=== PATIENT | male | born 1945 | race American Indian/Alaskan Native ===

== ENCOUNTER 2017-05-18 13:54 | Emergency (ER) | payer MEDICARE, MEDICAID ==
[2017-05-18 14:02] VITALS: BP 149/51
--- NOTE | 2017-05-18 14:36 | Emergency Department Report ---
Upper Extremity - HPI Chief Complaint: Extremity Injury, Upper Stated Complaint: RIGHT HAND PAIN Time Seen by Provider: 05/18/17 14:35 Upper Extremity: Right Wrist Occurred When: >5 Days Mechanism: Other (repetitive use) Symptoms: Yes Pain with Movement, Yes Numbness, No Deformity, No Limited Range of Movement, No Weakness, No Swelling, No Bruising/Ecchymosis, No Laceration or Abrasion Other History: 72-year-old male past medical history none presents with complaint of several months of intermittent right wrist discomfort. 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 Has been repetitively using his hands for the last week. Patient complains of intermittent right wrist pain with some associated numbness and tingling which goes to first second and third digits. Pain is worse with flexion of her right wrist. Some relief with extension. Denies any direct trauma no recent falls no direct blows to the right hand or wrist. ED Review of Systems ROS: Stated complaint: RIGHT HAND PAIN Other details as noted in HPI Constitutional: denies: chills, fever Eyes: denies: eye pain, eye discharge, vision change ENT: denies: ear pain, throat pain Respiratory: denies: cough, shortness of breath, wheezing Cardiovascular: denies: chest pain, palpitations Endocrine: no symptoms reported Gastrointestinal: denies: abdominal pain, nausea, diarrhea Genitourinary: denies: urgency, dysuria Musculoskeletal: as per HPI, arthralgia. denies: back pain, joint swelling Skin: denies: rash, lesions Neurological: denies: headache, weakness, paresthesias Psychiatric: denies: anxiety, depression Hematological/Lymphatic: denies: easy bleeding, easy bruising ED Past Medical Hx - Past Medical History Previous Medical History?: No - Medications Home Medications: Home Medications Medication Instructions Recorded Confirmed Last Taken Type Acetaminophen [Acetaminophen TAB] 500 mg PO Q6HR PRN #30 tablet 05/18/17 Unknown Rx Upper Extremity Exam - Exam General: Vital signs noted. No distress. Alert and acting appropriately. Head and Torso: No HEENT Abnormality, No Neck Tenderness, No Chest/Lungs Abnormality, No Abdominal Tenderness, No Back Tenderness Shoulder Exam: Yes Normal Range of Motion in Shoulder, No Shoulder Tenderness, No Clavicle Tenderness, No Shoulder Deformity, No AC Joint Tenderness Arm Exam: No Arm/Humerus Tenderness, No Arm Deformity Elbow: No Elbow Tenderness, No Normal Range of Motion in Elbow, No Elbow Deformity Forearm: No Forearm Tenderness, No Forearm Deformity, No Pain with Pronation, No Pain with Supination Wrist: Yes Normal ROM in Wrist (right wrist flexion and extension intact. Phalen and Tinel sign positive), No Wrist Tenderness, No Wrist Deformity, No Snuffbox Tenderness, No Pain with Axial Thumb Compression Hand: Yes Normal ROM in Digit(s) (flexion and extension digits right hand at PIP and DIPs MCPs fully intact), No Hand Tenderness, No Hand Deformity, No Digit Tenderness, No Digit(s) Deformity, No Tendon Dysfunction CMS Exam: Yes Normal Distal Pulses (distal radial ulnar and brachial pulses strong to palpation), Yes Normal Capillary Refill (capillary refill less than 1 second finger), Yes Normal Distal Sensation (prescriptions intact), No Broken Skin ED Course Vital Signs 05/18/17 13:59 Temperature 97.5 F L Pulse Rate 62 Respiratory 16 Rate Blood Pressure 149/51 O2 Sat by Pulse 100 Oximetry ED Medical Decision Making - Medical Decision Making A/P: Right carpal tunnel syndrome 1-right wrist Velcro splint, Tylenol extra strength when necessary 2-orthopedics follow-up 3-distal capillary refill intact and distal pulses right hand strong to palpation Critical care attestation.: If time is entered above; I have spent that time in minutes in the direct care of this critically ill patient, excluding procedure time. ED Disposition Clinical Impression: Carpal tunnel syndrome, right Disposition: DC-01 TO HOME OR SELFCARE Is pt being admited?: No Does the pt Need Aspirin: No Condition: Stable Instructions: Carpal Tunnel Syndrome (ED) Prescriptions: Acetaminophen [Acetaminophen TAB] 500 mg PO Q6HR PRN #30 tablet PRN Reason: Pain Referrals: [facility] [Provider Group] - 3-5 Days DOUGLAS HERNANDEZ MD [Staff Physician] - 3-5 Days Forms: Accompanied Note Time of Disposition: 14:50
== END 2017-05-18 15:11 | disposition home or self-care (01) ==
LOC: ED 13:54
DX: G56.01 Carpal tunnel syndrome, right upper limb (principal)
CPT/HCPCS: 99282

== ENCOUNTER 2018-03-28 08:25 | Emergency (ER) | payer MEDICARE, MEDICAID ==
--- NOTE | 2018-03-28 09:33 | Emergency Department Report ---
Minor Respiratory - HPI Chief Complaint: Upper Respiratory Infection Stated Complaint: FLU LIKE Time Seen by Provider: 03/28/18 09:12 Duration: 3 Days Pain Location: Ear Severity: moderate Minor Respiratory: Yes Rhinorrhea, Yes Able to Tolerate Fluids, Yes Ear Pain (left), Yes Cough (mildly productive), Yes Sick Contacts (granddaughter), Yes Fever (subjective), No Sore Throat, No Hemoptysis, No Chest Pain, No Shortness of Breath ED Review of Systems ROS: Stated complaint: FLU LIKE Other details as noted in HPI Comment: All other systems reviewed and negative ED Past Medical Hx - Past Medical History Previous Medical History?: No - Surgical History Past Surgical History?: No - Social History Smoking Status: Never Smoker Substance Use Type: None - Medications Home Medications: Home Medications Medication Instructions Recorded Confirmed Last Taken Type Acetaminophen [Acetaminophen TAB] 500 mg PO Q6HR PRN #30 tablet 05/18/17 Unknown Rx ALBUTEROL Inhaler (OR & NICU) 2 puff IH QID PRN #1 inhalation 03/28/18 Unknown Rx [ProAir HFA Inhaler] Fluticasone [Flonase] 1 spray NS QDAY #1 bottle 03/28/18 Unknown Rx predniSONE [Deltasone] 20 mg PO QDAY #5 tab 03/28/18 Unknown Rx Minor Respiratory Exam - Exam General: Vital signs noted. No distress. Alert and acting appropriately. HEENT: Yes Moist Mucous Membranes, No Pharyngeal Erythema, No Pharyngeal Exudates, No Rhinorrhea, No Conjuctival Injection, No Frontal Tenderness, No Maxillary Tenderness Ear: Neither TM Bulge, Neither TM Erythema, Neither EAC Pain, Neither EAC Discharge Neck: Yes Supple, No Adenopathy Lungs: Yes Good Air Exchange, No Wheezes, No Ronchi, No Stridor, No Cough, No Labored Respirations, No Retractions, No Use of Accessory Muscles, No Other Abnormal Lung Sounds Heart: Yes Regular, No Murmur Abdomen: Yes Normal Bowel Sounds, No Tenderness, No Peritoneal Signs Skin: No Rash, No Edema Neurologic: Alert and oriented, no deficits. Musculoskeletal: Unremarkable. ED Course Vital Signs 03/28/18 08:29 Temperature 97.6 F Pulse Rate 82 Respiratory 20 Rate Blood Pressure 163/82 O2 Sat by Pulse 100 Oximetry ED Medical Decision Making - Medical Decision Making Patient with mild upper respiratory infection symptoms likely from a viral source. Patient will be given meds for symptomatic relief and will be discharged home. Critical care attestation.: If time is entered above; I have spent that time in minutes in the direct care of this critically ill patient, excluding procedure time. ED Disposition Clinical Impression: Upper respiratory infection Disposition: DC-01 TO HOME OR SELFCARE Is pt being admited?: No Does the pt Need Aspirin: No Condition: Stable Instructions: Upper Respiratory Infection (ED) Referrals: CORNELL MORRIS MD [Primary Care Provider] - 3-5 Days Time of Disposition: 09:31
== END 2018-03-28 09:46 | disposition home or self-care (01) ==
LOC: ED 08:25
DX: J06.9 Acute upper respiratory infection, unspecified (principal)
CPT/HCPCS: 99282

== ENCOUNTER 2019-12-28 23:46 | Emergency (ER) | payer MEDICAID, MEDICARE ==
[2019-12-29] MEDS ORDERED: MORPHINE 4 MG/1 ML INJ IM ONE (02:26)
[2019-12-29] MEDS ORDERED: ONDANSETRON 4 MG/2 ML INJ IM ONE (02:26)
--- NOTE | 2019-12-29 02:33 | Emergency Department Report ---
ED Male HPI - General Chief complaint: Abdominal Pain Stated complaint: PAINFUL PROSTATE Time Seen by Provider: 12/29/19 02:07 Source: patient Mode of arrival: Ambulatory Limitations: No Limitations - History of Present Illness Initial comments: Patient is 74 years old male with no significant past medical history except for benign prostatic hypertrophy. Patient presented to the ER stating that he is having difficulty urinating with significant burning sensation. Patient stated the symptoms started 2 days ago. Patient denied any hematuria. Patient stating that he is making urine although is less amount than he used to do. He stated that he has some chills 2 days ago but no fever. Patient denied any other symptoms. MD Complaint: dysuria -: days(s) (2) Worsens with: urination - Related Data Previous Rx's Medication Instructions Recorded Last Taken Type Acetaminophen [Acetaminophen TAB] 500 mg PO Q6HR PRN #30 tablet 05/18/17 Unknown Rx Albuterol Mdi (or & Nicu Only) 2 puff IH QID PRN #1 inhalation 03/28/18 Unknown Rx [ProAir HFA Inhaler] Fluticasone [Flonase] 1 spray NS QDAY #1 bottle 03/28/18 Unknown Rx predniSONE [Deltasone] 20 mg PO QDAY #5 tab 03/28/18 Unknown Rx Allergies Allergy/AdvReac Type Severity Reaction Status Date / Time No Known Allergies Allergy Verified 03/28/18 08:29 ED Review of Systems ROS: Stated complaint: PAINFUL PROSTATE Other details as noted in HPI Comment: All other systems reviewed and negative Constitutional: chills. denies: fever Respiratory: denies: cough, shortness of breath, SOB with exertion Cardiovascular: denies: chest pain Gastrointestinal: abdominal pain. denies: nausea, vomiting Genitourinary: urgency, dysuria, frequency. denies: hematuria, discharge, testicular pain, testicular mass, other Neurological: denies: headache ED Past Medical Hx - Past Medical History Previous Medical History?: No - Surgical History Past Surgical History?: No - Social History Smoking Status: Never Smoker Substance Use Type: None - Medications Home Medications: Home Medications Medication Instructions Recorded Confirmed Last Taken Type Acetaminophen [Acetaminophen TAB] 500 mg PO Q6HR PRN #30 tablet 05/18/17 Unknown Rx Albuterol Mdi (or & Nicu Only) 2 puff IH QID PRN #1 inhalation 03/28/18 Unknown Rx [ProAir HFA Inhaler] Fluticasone [Flonase] 1 spray NS QDAY #1 bottle 03/28/18 Unknown Rx predniSONE [Deltasone] 20 mg PO QDAY #5 tab 03/28/18 Unknown Rx ED Physical Exam - General Limitations: No Limitations General appearance: alert, in no apparent distress - Head Head exam: Present: atraumatic, normocephalic, normal inspection - Eye Eye exam: Present: normal appearance - ENT ENT exam: Present: normal exam, normal orophraynx, mucous membranes moist - Neck Neck exam: Present: normal inspection, full ROM. Absent: tenderness, meningismus - Respiratory Respiratory exam: Present: normal lung sounds bilaterally - Cardiovascular Cardiovascular Exam: Present: regular rate, normal rhythm, normal heart sounds - GI/Abdominal GI/Abdominal exam: Present: soft, normal bowel sounds. Absent: distended, tenderness, guarding, rebound, rigid, organomegaly, mass, bruit, pulsatile mass, hernia - Extremities Exam Extremities exam: Present: normal inspection, full ROM, normal capillary refill. Absent: tenderness, pedal edema, joint swelling, calf tenderness - Back Exam Back exam: Present: normal inspection, full ROM. Absent: CVA tenderness (R), CVA tenderness (L) - Neurological Exam Neurological exam: Present: alert, oriented X3, CN II-XII intact, normal gait, reflexes normal - Psychiatric Psychiatric exam: Present: normal mood - Skin Skin exam: Present: warm, intact, normal color ED Course Vital Signs 12/29/19 04:03 Pulse Rate 61 Respiratory 16 Rate Blood Pressure 129/61 [Right] ED Medical Decision Making - Lab Data Result diagrams: 12/29/19 03:02 12/29/19 03:02 - Medical Decision Making Patient is 74 years old male with no significant past medical history except for benign prostatic hypertrophy. Patient presented to the ER stating that he is having difficulty urinating with significant burning sensation. Patient stated the symptoms started 2 days ago. Patient denied any hematuria. Patient stating that he is making urine although is less amount than he used to do. He stated that he has some chills 2 days ago but no fever. Patient denied any other symptoms. Patient received morphine for pain and stated that it helped a lot with his symptoms. Labs reviewed and is unremarkable. Urine showed some WBCs could be because of an early UTI. Patient will be treated with ciprofloxacin and advised to follow-up with his primary doctor in the next 2 to 3 days. Patient also advised to return to the ER if symptoms are not improved or if he develop any new symptoms. Critical care attestation.: If time is entered above; I have spent that time in minutes in the direct care of this critically ill patient, excluding procedure time. ED Disposition Clinical Impression: UTI (urinary tract infection), Prostatitis Disposition: TO HOME OR SELFCARE Is pt being admited?: No Condition: Stable Instructions: Prostatitis (ED) Referrals: PRIMARY CARE, [Primary Care Provider] - 3-5 Days
[2019-12-29 02:43] LABS: Bilirubin,Urine NEG (Negative); Blood,Urine NEG (Negative); Color,Urine Yellow (Yellow); Hyaline Casts,Urine 1 /LPF; Mucus,Urine 2+ /HPF; Urobilinogen,Urine < 2.0 mg/dL (<2.0)
[2019-12-29 03:38] LABS: Basophils # (Auto) 0.1 K/mm3 (0.0-0.1); Basophils % (Auto) 0.9 % (0.0-1.8); Eosinophils % (Auto) 0.2 % (0.0-4.3); Hematocrit 40.1 % (35.5-45.6); Hemoglobin 13.4 gm/dl (11.8-15.2); Lymphocytes # (Auto) 1.8 K/mm3 (1.2-5.4); Mean Corpuscular HGB Conc 34 % (32-34); Mean Corpuscular Volume 80 fl (84-94); Monocytes # (Auto) 1.2 K/mm3 (0.0-0.8); Monocytes % (Auto) 15.5 % (0.0-7.3); Platelet Count 188 K/mm3 (140-440); Red Blood Count 5.02 M/mm3 (3.65-5.03); Red Cell Distribution Width 13.8 % (13.2-15.2)
[2019-12-29 03:57] LABS: BUN/Creatinine Ratio 18; Blood Urea Nitrogen 24 mg/dL (9-20); Calcium 9.8 mg/dL (8.4-10.2); Hemolysis Index 78
[2019-12-29 04:03] VITALS: BP 129/61
== END 2019-12-29 05:11 | disposition home or self-care (01) ==
LOC: ED 23:46
DX: N39.0 Urinary tract infection, site not specified (principal); N41.0 Acute prostatitis; Z79.899 Other long term (current) drug therapy
CPT/HCPCS: 36415; 80048; 81001; 85025; 87086; 96372; 99283; J2270; J2405

== ENCOUNTER 2020-07-28 10:14 | Emergency (ER) | payer MEDICARE, OTHER ==
[2020-07-28 11:59] LABS: Bilirubin,Urine NEG (Negative); Blood,Urine NEG (Negative); Color,Urine Straw (Yellow); Protein,Urine <15 mg/dL mg/dL (Negative); Urobilinogen,Urine < 2.0 mg/dL (<2.0)
--- NOTE | 2020-07-28 13:13 | Emergency Department Report ---
ED General Adult HPI - General Chief complaint: Urogenital-Male Stated complaint: LOW ABD PAIN Time Seen by Provider: 07/28/20 11:47 Source: patient Mode of arrival: Ambulatory Limitations: No Limitations - History of Present Illness Initial comments: 75-year-old male patient with history of prostate enlargement presents to the emergency department with complaints of urinary discomfort for 4 days. States his symptoms are reminiscent of prior urinary tract infection. He is scheduled to see his urologist in 2 weeks. He is not currently on antibiotics or alpha blockers. No known STD exposure. Denies fever, chills, abdominal pain, nausea, vomiting, abdominal pain, pelvic pain, rectal pain, perineal pain, testicular pain/swelling, purulent drainage. Denies all other complaints at this time. - Related Data Previous Rx's Medication Instructions Recorded Last Taken Type Acetaminophen [Acetaminophen TAB] 500 mg PO Q6HR PRN #30 tablet 05/18/17 Unknown Rx Albuterol Mdi (or & Nicu Only) 2 puff IH QID PRN #1 inhalation 03/28/18 Unknown Rx [ProAir HFA Inhaler] Fluticasone [Flonase] 1 spray NS QDAY #1 bottle 03/28/18 Unknown Rx predniSONE [Deltasone] 20 mg PO QDAY #5 tab 03/28/18 Unknown Rx Ciprofloxacin HCl [Ciprofloxacin 500 mg PO Q12HR #20 tab 12/29/19 Unknown Rx TAB] Ondansetron [Zofran Odt] 4 mg PO Q8HR PRN #14 tab.rapdis 12/29/19 Unknown Rx Tamsulosin [Flomax] 0.4 mg PO QDAY #14 cap 12/29/19 Unknown Rx traMADoL [Ultram 50 MG tab] 50 mg PO Q4HR PRN #14 tablet 12/29/19 Unknown Rx Fluconazole [Diflucan TAB] 200 mg PO QDAY 14 Days tablet 07/28/20 Unknown Rx Tamsulosin [Flomax] 0.4 mg PO QDAY 14 Days cap 07/28/20 Unknown Rx Allergies Allergy/AdvReac Type Severity Reaction Status Date / Time No Known Allergies Allergy Verified 03/28/18 08:29 ED Review of Systems ROS: Stated complaint: LOW ABD PAIN Other details as noted in HPI Other: GENERAL: Negative for fever, chills, weight change, anorexia, fatigue. ENT: Negative for ear pain, difficulty hearing, sore throat, nasal congestion, epistaxis. CARDIOVASCULAR: Negative for chest pain, palpitations, lower extremity swelling. PULMONARY: Negative for cough, dyspnea, wheezing, orthopnea, cyanosis. GASTROINTESTINAL: Negative for abdominal pain, nausea, vomiting, diarrhea, constipation. GENITOURINARY: Positive for urinary discomfort. MUSCULOSKELETAL: Negative for joint pain, joint swelling, myalgias, back pain, neck pain. NEUROLOGICAL: Negative for headache, seizure, syncope, paresthesias, weakness. INTEGUMENTARY: Negative for erythema, rash, diaphoresis, laceration, ecchymosis. HEMATOLOGICAL: Negative for hemoptysis, hematemesis, hematochezia, hematuria. PSYCHIATRIC: Negative for hallucinations, suicidal ideation, homicidal ideation, anxiety, depression. ED Past Medical Hx - Past Medical History Previous Medical History?: No - Social History Smoking Status: Never Smoker Substance Use Type: None - Medications Home Medications: Home Medications Medication Instructions Recorded Confirmed Last Taken Type Acetaminophen [Acetaminophen TAB] 500 mg PO Q6HR PRN #30 tablet 05/18/17 Unknown Rx Albuterol Mdi (or & Nicu Only) 2 puff IH QID PRN #1 inhalation 03/28/18 Unknown Rx [ProAir HFA Inhaler] Fluticasone [Flonase] 1 spray NS QDAY #1 bottle 03/28/18 Unknown Rx predniSONE [Deltasone] 20 mg PO QDAY #5 tab 03/28/18 Unknown Rx Ciprofloxacin HCl [Ciprofloxacin 500 mg PO Q12HR #20 tab 12/29/19 Unknown Rx TAB] Ondansetron [Zofran Odt] 4 mg PO Q8HR PRN #14 tab.rapdis 12/29/19 Unknown Rx Tamsulosin [Flomax] 0.4 mg PO QDAY #14 cap 12/29/19 Unknown Rx traMADoL [Ultram 50 MG tab] 50 mg PO Q4HR PRN #14 tablet 12/29/19 Unknown Rx Fluconazole [Diflucan TAB] 200 mg PO QDAY 14 Days tablet 07/28/20 Unknown Rx Tamsulosin [Flomax] 0.4 mg PO QDAY 14 Days cap 07/28/20 Unknown Rx ED Physical Exam - General Limitations: No Limitations - Other Other exam information: General: Awake, appropriately interactive, no acute distress. Neck: Supple. Full range of motion intact. Cardiovascular: Normal peripheral perfusion. Pulmonary: No respiratory distress. Patient is speaking normally without use of accessory muscles. Abdomen: Soft, nontender, nondistended. No guarding, rigidity, or rebound. Skin: No apparent rashes or lesions. Neurological: No facial asymmetry. Speech is clear. Follows commands. Patient is alert and oriented. Musculoskeletal: Moves all four extremities spontaneously with normal range of motion. Psych: Cooperative. Appropriate mood and affect. ED Course Vital Signs 07/28/20 11:02 Temperature 98.5 F ED Medical Decision Making - Medical Decision Making Differential diagnosis including but not limited to: urinary tract infection, prostatitis, prostate cancer, benign prostate enlargement On reevaluation, patient remains stable. He is afebrile, hemodynamically stable, no distress. He does not appear dehydrated or uncomfortable. He is ambulatory without assistance and is not exhibiting signs of systemic illness. Urinalysis shows budding yeast without evidence of concomitant bacterial infection. Clinical presentation is not suggestive of acute prostatitis. Patient will be discharged home with prescription for Diflucan per current IDSA symptomatic candiduria guidelines. He is already scheduled to see a urologist next week. Patient expressed understanding and is agreeable to plan of care. Strict return precautions provided. Repeat exam is unremarkable and benign. History, exam, diagnostic testing, and current condition do not suggest worrisome pathology to warrant further testing, continued ED treatment, admission, or surgical evaluation at this point. Given the low probability of a significant medical illness, it would be more likely to result in harm than benefit to perform further testing at this stage. Discussed findings, presumptive diagnosis, need for follow-up and specific signs/symptoms that should prompt immediate return to the emergency department. Instructions were explained in detail to the patient in addition to giving written discharge information. Patient expressed understanding and was given the opportunity to ask questions, all of which were satisfactorily answered prior to discharge home. Critical care attestation.: If time is entered above; I have spent that time in minutes in the direct care of this critically ill patient, excluding procedure time. ED Disposition Clinical Impression: Candiduria Disposition: DC-01 TO HOME OR SELFCARE Is pt being admited?: No Does the pt Need Aspirin: No Condition: Stable Instructions: Urinary Tract Infection, Adult Additional Instructions: Take Diflucan as directed. Take Flomax as directed. Rest. Drink plenty fluids. Follow-up with your urologist on August 10 as scheduled. Return to the emergency department immediately for new or worsening symptoms. Specifically, return to the emergency department immediately for fever, abdominal pain, pelvic/rectal pain, inability to use the bathroom, vomiting, or any other concerns. Prescriptions: Fluconazole [Diflucan TAB] 200 mg PO QDAY 14 Days tablet Tamsulosin [Flomax] 0.4 mg PO QDAY 14 Days cap Referrals: [facility] [Provider Group] - 3-5 Days Time of Disposition: 13:17
[2020-07-28 20:10] VITALS: BP 125/65
== END 2020-07-28 13:51 | disposition home or self-care (01) ==
LOC: ED 10:14
DX: B37.49 Other urogenital candidiasis (principal); R10.30 Lower abdominal pain, unspecified; Z79.899 Other long term (current) drug therapy
CPT/HCPCS: 81001; 99283